=== PATIENT | female | born 1955 | race American Indian/Alaskan Native ===

== ENCOUNTER 2017-03-05 20:53 | Emergency (ER) | payer MEDICAID, OTHER ==
[2017-03-05 21:32] VITALS: BP 185/80
[2017-03-05 22:41] LABS: CHLORIDE,CL 106 mmol/L (101-111); SODIUM,NA 144 mmol/L (135-145)
[2017-03-05] MEDS ORDERED: Diltiazem IR 30 MG Tab PO ONE (23:19)
--- NOTE | 2017-03-05 23:24 | EDM.PDOC ---
ED HPI GENERAL MEDICAL PROBLEM - General Chief Complaint: General Stated Complaint: BODY FEELS, TINGLY, [id number] Time Seen by Provider: 03/05/17 23:20 Source of Information: Reports: Patient History Limitations: Reports: No Limitations - History of Present Illness INITIAL COMMENTS - FREE TEXT/NARRATIVE: c/o having rapid heart for few months been [facility] few months [facility] was told need cardio referral but nothing happened then while at her 6 month check up last tuesday pt repeated her concern and has referral pending next week. tonight problem still not gone and has pressure in head so came here - Related Data Allergies Allergy/AdvReac Type Severity Reaction Status Date / Time aspirin Allergy Acid Reflux Verified 03/05/17 21:33 codeine Allergy Stomach Verified 03/05/17 21:33 Upset doxycycline Allergy Nausea Verified 03/05/17 21:33 metronidazole [From Flagyl] Allergy Nausea Verified 03/05/17 21:33 sulfamethoxazole Allergy Nausea Verified 03/05/17 21:33 [From Bactrim] trimethoprim [From Bactrim] Allergy Nausea Verified 03/05/17 21:33 Home Meds: Home Meds Albuterol Sulfate [Albuterol Sulfate HFA] 2 inhalation IH ASDIRECTED PRN [History] Atenolol [Tenormin] 100 mg PO DAILY 02/13/14 [History] Pantoprazole [Protonix] 40 mg PO BID 02/13/14 [History] atorvaSTATin [Lipitor] 20 mg PO BEDTIME 02/13/14 [History] amLODIPine Besylate [Amlodipine Besylate] 5 mg PO DAILY 10/04/14 [History] Ibuprofen 600 mg PO Q6H PRN 04/19/16 [History] Loratadine 1 tab PO DAILY PRN 04/19/16 [History] Cholecalciferol (Vitamin D3) [Vitamin D3] 1 tab PO DAILY 03/05/17 [History] Past Medical History HEENT History: Reports: Hard of Hearing, Impaired Vision Other HEENT History: wearing corrective lenses Cardiovascular History: Reports: High Cholesterol, Hypertension Respiratory History: Reports: Asthma, Bronchitis, Recurrent, Pneumonia, Recurrent Gastrointestinal History: Reports: Cholelithiasis, GERD Genitourinary History: Reports: UTI, Recurrent, Other (See Below) Other Genitourinary History: Kidney stones [employer] History: Reports: Musculoskeletal History: Reports: Arthritis, Back Pain, Chronic Neurological History: Reports: None Psychiatric History: Reports: None Endocrine/Metabolic History: Reports: None Hematologic History: Reports: None Immunologic History: Reports: None Oncologic (Cancer) History: Reports: None Dermatologic History: Reports: Psoriasis - Infectious Disease History Infectious Disease History: Reports: Chicken Pox, Mumps - Past Surgical History GI Surgical History: Reports: Appendectomy, Cholecystectomy, EGD, Esophageal Dilatation Social & Family History - Family History Family Medical History: Noncontributory HEENT: Reports: Hearing Impairment Cardiac: Reports: CAD, Hypertension, Pacemaker Other Cardiac Family History: Mother Respiratory: Reports: None GI: Reports: None : Reports: Renal Disease/Insufficiency OBGYN: Reports: None Musculoskeletal: Reports: None Neurological: Reports: None Psychiatric: Reports: None Endocrine/Metabolic: Reports: None, Diabetes, type II Hematologic: Reports: None Immunologic: Reports: None Dermatologic: Reports: None Oncologic: Reports: Prostate, Other (See Below) Other Oncologic Family History: vaginal ca - Tobacco Use Smoking Status *Q: Former Smoker Years of Tobacco use: 15 Packs/Tins Daily: 1 Used Tobacco, but Quit: No Month Tobacco Last Used: april Second Hand Smoke Exposure: No - Caffeine Use Caffeine Use: Reports: Coffee, Soda - Alcohol Use Days Per Week of Alcohol Use: 0 - Recreational Drug Use Recreational Drug Use: No ED ROS GENERAL - Review of Systems Review Of Systems: ROS reveals no pertinent complaints other than HPI. ED EXAM, GENERAL - Physical Exam Exam: See Below Exam Limited By: No Limitations General Appearance: Alert, WD/WN, Anxious, Mild Distress, Other (distraught) Ears: Hearing Grossly Normal Throat/Mouth: Normal Voice, No Airway Compromise Head: Atraumatic Neck: Non-Tender, Full Range of Motion Respiratory/Chest: No Respiratory Distress Cardiovascular: Regular Rate, Rhythm GI/Abdominal: Soft, Non-Tender Neurological: Alert, Oriented, Normal Cognition, Normal Gait, No Motor/Sensory Deficits Psychiatric: Flat Affect Skin Exam: Warm, Dry, Normal Color Lymphatic: No Adenopathy Course - Vital Signs Last Recorded V/S: Last Vital Signs Temp 36.3 C 03/05/17 21:29 Pulse 75 03/05/17 21:29 Resp 16 03/05/17 21:29 BP 185/80 H 03/05/17 21:29 Pulse Ox 99 03/05/17 21:29 - Orders/Labs/Meds Orders: Active Orders 24 hr Category Date Time Status EKG 12 Lead [EKG Documentation Completion] [RC] STAT Care 03/05/17 23:18 Active Labs: Laboratory Tests 03/05/17 03/05/17 03/05/17 Range/Units 21:55 22:15 22:15 WBC 7.7 (5.0-10.0) 10^3/uL RBC 4.43 (4.2-5.4) 10^6/uL Hgb 12.9 (12.0-16.0) g/dL Hct 38.5 (37.0-47.0) % MCV 86.9 (80-100) fL MCH 29.1 (27.0-34.0) pg MCHC 33.5 (33.0-35.0) g/dL Plt Count 237 (150-450) 10^3/uL Neut % (Auto) 66.0 (42.2-75.2) % Lymph % (Auto) 24.5 (20.5-50.1) % [place] % (Auto) 7.1 (2-8) % Eos % (Auto) 1.9 (1.0-3.0) % Baso % (Auto) 0.5 (0.0-1.0) % Sodium 144 (135-145) mmol/L Potassium 3.7 (3.6-5.0) mmol/L Chloride 106 (101-111) mmol/L Carbon Dioxide 28.0 (21.0-31.0) mmol/L Anion Gap 13.7 BUN 14 (7-18) mg/dL Creatinine 1.0 (0.6-1.3) mg/dL Est Cr Clr Drug Dosing 47.63 mL/min Estimated GFR (MDRD) 56 BUN/Creatinine Ratio 14.00 Glucose 120 H (74-105) mg/dL Calcium 9.4 (8.4-10.2) mg/dl Total Bilirubin 0.7 (0.2-1.0) mg/dL AST 20 (10-42) IU/L ALT 19 (10-60) IU/L Alkaline Phosphatase 64 (42-121) IU/L Troponin I < 0.02 (0.00-0.02) ng/ml Total Protein 6.9 (6.7-8.2) g/dl Albumin 4.2 (3.2-5.5) g/dl Globulin 2.7 Albumin/Globulin Ratio 1.56 Urine Color Straw (YELLOW) Urine Appearance Clear (CLEAR) Urine pH 7.0 (5.0-9.0) Ur Specific [place] 1.010 (1.005-1.030) Urine Protein Negative (NEGATIVE) Urine Glucose (UA) Negative (NEGATIVE) Urine Ketones Negative (NEGATIVE) Urine Occult Blood Trace-lysed H (NEGATIVE) Urine Nitrite Negative (NEGATIVE) Urine Bilirubin Negative (NEGATIVE) Urine Urobilinogen 0.2 (0.2-1.0) mg/dL Ur Leukocyte Esterase Trace H (NEGATIVE) Urine RBC 0-5 /HPF Urine WBC 0-5 (0-5/HPF) /HPF Ur Epithelial Cells Occasional /HPF Urine Bacteria Occasional (0-FEW/HPF) /HPF Meds: Medications Discontinued Medications Generic Name Dose Route Start Last Admin Trade Name Freq PRN Reason Stop Dose Admin Diltiazem HCl 30 mg 03/05/17 23:19 03/05/17 23:25 Cardizem PO 03/05/17 23:20 30 mg ONETIME ONE Administration - Re-Assessments/Exams Free Text/Narrative Re-Assessment/Exam: 03/06/17 00:01 results discussed with pt who is feeling better post cardizem with BP going down Departure - Departure Time of Disposition: 00:02 Disposition: Home, Self-Care 01 Condition: Good Clinical Impression: Heart palpitations - Discharge Information Instructions: Palpitations Forms: ED Department Discharge Additional Instructions: 1) rest and avoid bending lifting straining 2) see clinic Tuesday for STRESS TEST, ECHOCARDIOGRAM, HOLTER MONITOR 3) recheck if there is any change or concern - My Orders Last 24 Hours: My Active Orders 03/05/17 23:18 EKG 12 Lead [EKG Documentation Completion] [RC] STAT - Assessment/Plan Last 24 Hours: My Active Orders 03/05/17 23:18 EKG 12 Lead [EKG Documentation Completion] [RC] STAT
--- NOTE | 2017-03-22 11:02 | EKG ---
03/05/2017- JHONNY GRANGER - This is a standard 12-lead EKG showing normal sinus rhythm with a ventricular rate of 60 beats per minute. Normal FL interval and QRS duration. Normal axis. No significant ST-T changes. [facility] /[id number]
== END 2017-03-06 00:18 | disposition home or self-care (01) ==
LOC: DL.ED 20:53
DX: R00.2 Palpitations (principal); E78.00 Pure hypercholesterolemia, unspecified; I10 Essential (primary) hypertension; K21.9 Gastro-esophageal reflux disease without esophagitis; J45.909 Unspecified asthma, uncomplicated; M19.90 Unspecified osteoarthritis, unspecified site; Z88.6 Allergy status to analgesic agent; Z88.5 Allergy status to narcotic agent; Z88.1 Allergy status to other antibiotic agents; Z88.2 Allergy status to sulfonamides; Z79.899 Other long term (current) drug therapy; Z87.01 Personal history of pneumonia (recurrent); Z87.440 Personal history of urinary (tract) infections; Z90.49 Acquired absence of other specified parts of digestive tract; Z87.891 Personal history of nicotine dependence
CPT/HCPCS: 36415; 80053; 81001; 84484; 85025; 93005; 99285; A9270

== ENCOUNTER 2017-05-10 05:43 | Day surgery (SDC) | payer OTHER ==
[2017-05-10] MEDS ORDERED: fentaNYL 100 MCG/2 ML SDV IV ONE ×2 (05:44→07:08)
[2017-05-10] MEDS ORDERED: Midazolam 1 MG/ML 2 ML SDV IV ONE ×6 (05:44→07:14)
[2017-05-10] MEDS ORDERED: Midazolam 1 MG/ML 2 ML SDV ONE (06:11)
[2017-05-10] MEDS ORDERED: Dextrose 5%-0.45% NaCl 1,000 ML IV SCH (06:30)
[2017-05-10] MEDS ORDERED: Sodium Chloride 0.9% 10 ML Syringe FLUSH PRN (06:30)
[2017-05-10 09:57] VITALS: BP 128/66
--- NOTE | 2017-05-10 12:07 | OR ---
DATE: 05/10/2017 PROCEDURE: Total colonoscopy. INSTRUMENT USED: CF-H180 AL Olympus video colonoscope. PREMEDICATIONS: Fentanyl 100 mcg intravenous, Versed 4 mg intravenous. Nasal O2 cannula. The procedure was done under pulse oximetry, BP recording, and manager cardiac. INDICATION: Screening colonoscopic examination is done for detection of any polypoid lesions and removal, endoscopic hemostasis therapy if needed. DESCRIPTION OF PROCEDURE: Initial rectal exam showed external hemorrhoidal tags. Rigid anoscopy was normal. The colonoscope was passed with ease. Few scattered diverticula were noted in the distal left colon along with some deformity. The scope was passed with ease up to the ileocecal area, photographs were taken of the normal-appearing cecum, identified by landmarks of appendiceal orifice and double-bulged ileocecal folds. No bleeding was noted from any of the visualized areas at the commencement of the examination. No stricture. No vascular ectasia. No large isolated ulcerations seen. No evidence of diffuse inflammatory bowel disease in the form of friability, contact bleeding, or ulcerations. No polyp or tumor mass identified. Probing the proximal sides of folds and flexures, using adequate distention and clearing of the stool material, withdrawal of the scope was made. Cecum to rectum time was 6 minutes. No bleeding was noted from any of the visualized areas at the completion of examination. IMPRESSION: 1. External hemorrhoids. 2. Diverticulosis. The patient tolerated the procedure well. [facility] /[id number]
--- NOTE | 2017-05-10 12:19 | LETTER ---
05/10/2017 Quyen Hamilton NP [facility] [address] [place] [address] RE: JHONNY GRANGER : 1955 Dear Ms. Hamilton: Ms. Jhonny Cantorgailnatalia had colonoscopic examination done this morning and she tolerated the procedure well. I herewith send a copy of endoscopy note and photographs for your review. Thank you. Sincerely, [facility] /[id number]
== END 2017-05-10 09:26 | disposition home or self-care (01) ==
LOC: DL.ENDO 05:43
PROVIDERS: ATTEND Internal Medicine Gastroenterology
DX: Z12.11 Encounter for screening for malignant neoplasm of colon (principal); K57.30 Diverticulosis of large intestine without perforation or abscess without bleeding; K64.4 Residual hemorrhoidal skin tags; E66.09 Other obesity due to excess calories; I10 Essential (primary) hypertension; E78.5 Hyperlipidemia, unspecified; K21.9 Gastro-esophageal reflux disease without esophagitis
CPT/HCPCS: 45378; J2250; J3010; J7042

== ENCOUNTER 2021-07-08 17:12 | Emergency (ER) | payer BC, OTHER, MEDICARE ==
[2021-07-08 17:48] VITALS: BP 151/75; PULSE 90
[2021-07-08 17:59] LABS: ANION GAP 14.5 mEq/L (7-13); CHLORIDE,CL 100 mmol/L (98-107); SODIUM,NA 139 mmol/L (136-145)
[2021-07-08 18:16] LABS: CORONAVIRUS COVID-19 NAA NEGATIVE (NEGATIVE)
--- NOTE | 2021-07-08 18:26 | EDM.PDOC ---
ED HPI GENERAL MEDICAL PROBLEM - General Chief Complaint: Chest Pain Stated Complaint: PAIN IN CHEST Time Seen by Provider: 07/08/21 18:15 Source of Information: Reports: Patient History Limitations: Reports: No Limitations - History of Present Illness INITIAL COMMENTS - FREE TEXT/NARRATIVE: This 66 yo female patient reports to the ED today due to increased chest wall tightness. The patient also reports she had diarrhea this morning and has not been eating or drinking normally today. The patient reports she had an episode of lightheadedness this afternoon. The patient reports she does not have any symptoms at this time. Onset: Today Duration: Resolved Prior to Arrival Location: Reports: Generalized Quality: Reports: Other Severity: Mild Improves with: Reports: None Worsens with: Reports: None Context: Reports: Other Associated Symptoms: Reports: No Other Symptoms Bilateral Breast Pain Score (Numeric/FACES): 7 - Related Data Allergies Allergy/AdvReac Type Severity Reaction Status Date / Time aspirin Allergy Acid Reflux Verified 07/08/21 17:49 codeine Allergy Stomach Verified 07/08/21 17:49 Upset doxycycline Allergy Nausea Verified 07/08/21 17:49 metronidazole [From Flagyl] Allergy Nausea Verified 07/08/21 17:49 sulfamethoxazole Allergy Nausea Verified 07/08/21 17:49 [From Bactrim] trimethoprim [From Bactrim] Allergy Nausea Verified 07/08/21 17:49 Home Meds: Home Meds Albuterol Sulfate [Albuterol Sulfate HFA] 2 puff IH ASDIRECTED PRN 02/13/14 [History] Atenolol [Tenormin] 100 mg PO DAILY 02/13/14 [History] Pantoprazole [Protonix] 40 mg PO BID 02/13/14 [History] atorvaSTATin [Lipitor] 20 mg PO BEDTIME 02/13/14 [History] amLODIPine Besylate [Amlodipine Besylate] 10 mg PO DAILY 10/04/14 [History] Ibuprofen 600 mg PO Q6H PRN 04/19/16 [History] Loratadine 1 tab PO DAILY PRN 04/19/16 [History] Cholecalciferol (Vitamin D3) [Vitamin D3] 1 tab PO DAILY 03/05/17 [History] Meloxicam 15 mg PO DAILY PRN 03/22/17 [History] Triamcinolone Acetonide 1 spray NASBOTH BID PRN 03/22/17 [History] Past Medical History HEENT History: Reports: Hard of Hearing, Impaired Vision Other HEENT History: wearing corrective lenses Cardiovascular History: Reports: High Cholesterol, Hypertension, Other (See Below) Other Cardiovascular History: PT STATES SHE HAS PALPITATIONS OCCASIONALLY Respiratory History: Reports: Asthma, Bronchitis, Recurrent, Pneumonia, Recurrent Gastrointestinal History: Reports: Cholelithiasis, GERD Genitourinary History: Reports: Renal Calculus, UTI, Recurrent, Other (See Below) Other Genitourinary History: Kidney stones [employer] History: Reports: Musculoskeletal History: Reports: Arthritis, Back Pain, Chronic Neurological History: Reports: None Psychiatric History: Reports: None Endocrine/Metabolic History: Reports: None Hematologic History: Reports: None Immunologic History: Reports: None Oncologic (Cancer) History: Reports: None Dermatologic History: Reports: Psoriasis - Infectious Disease History Infectious Disease History: Reports: Chicken Pox, Mumps - Past Surgical History Head Surgeries/Procedures: Reports: None HEENT Surgical History: Reports: None Cardiovascular Surgical History: Reports: None Respiratory Surgical History: Reports: None GI Surgical History: Reports: Appendectomy, Cholecystectomy, EGD, Esophageal Dilatation Musculoskeletal Surgical History: Reports: None Social & Family History - Family History Family Medical History: No Pertinent Family History HEENT: Reports: Hearing Impairment Cardiac: Reports: CAD, Hypertension, Pacemaker Other Cardiac Family History: Mother Respiratory: Reports: None GI: Reports: None : Reports: Renal Disease/Insufficiency OBGYN: Reports: None Musculoskeletal: Reports: None Neurological: Reports: None Psychiatric: Reports: None Endocrine/Metabolic: Reports: None, Diabetes, type II Hematologic: Reports: None Immunologic: Reports: None Dermatologic: Reports: None Oncologic: Reports: Prostate, Other (See Below) Other Oncologic Family History: vaginal ca - Tobacco Use Tobacco Use Status *Q: Never Tobacco User Second Hand Smoke Exposure: No - Caffeine Use Caffeine Use: Reports: Coffee Caffeine Use Comment: 8 oz - Recreational Drug Use Recreational Drug Use: No ED ROS GENERAL - Review of Systems Review Of Systems: Comprehensive ROS is negative, except as noted in HPI. ED EXAM, GENERAL - Physical Exam Exam: See Below Exam Limited By: No Limitations General Appearance: Alert, WD/WN, No Apparent Distress Eye Exam: Bilateral Eye: EOMI, Normal Inspection, PERRL Ears: Normal External Exam, Normal Canal, Hearing Grossly Normal, Normal TMs Nose: Normal Inspection, Normal Mucosa, No Blood Throat/Mouth: Normal Inspection, Normal Lips, Normal Teeth, Normal Gums, Normal Oropharynx, Normal Voice, No Airway Compromise Head: Atraumatic, Normocephalic Neck: Normal Inspection, Supple, Non-Tender, Full Range of Motion Respiratory/Chest: No Respiratory Distress, Lungs Clear, Normal Breath Sounds, No Accessory Muscle Use, Chest Non-Tender Cardiovascular: Normal Peripheral Pulses, Regular Rate, Rhythm, No Edema, No Gallop, No JVD, No Murmur, No Rub GI/Abdominal: Normal Bowel Sounds, Soft, Non-Tender, No Organomegaly, No Dis tention, No Abnormal Bruit, No Mass (Female) Exam: Deferred Rectal (Female) Exam: Deferred Back Exam: Normal Inspection, Full Range of Motion, NT Extremities: Normal Inspection, Normal Range of Motion, Non-Tender, Normal Capillary Refill, No Pedal Edema Neurological: Alert, Oriented, CN II-XII Intact, Normal Cognition, Normal Gait, Normal Reflexes, No Motor/Sensory Deficits Psychiatric: Normal Affect, Normal Mood Skin Exam: Warm, Dry, Intact, Normal Color, No Rash Lymphatic: No Adenopathy #1 Interpretation EKG Date: 07/08/21 Time: 18:33 Rhythm: NSR Rate (Beats/Min): 77 Kim: Normal P-Wave: Present QRS: Normal ST-T: Normal QT: Normal Comparison: No Change Course - Vital Signs Last Recorded V/S: Last Vital Signs Temp 97.0 F 07/08/21 17:38 Pulse 90 07/08/21 17:38 Resp 16 07/08/21 17:38 BP 151/75 H 07/08/21 17:38 Pulse Ox 98 07/08/21 17:38 - Orders/Labs/Meds Orders: Active Orders 24 hr Category Date Time Status CULTURE BLOOD [BC] Stat Lab 07/08/21 17:25 Received Labs: Laboratory Tests 07/08/21 07/08/21 07/08/21 Range/Units 17:23 17:25 17:25 WBC 10.6 H (5.0-10.0) 10^3/uL RBC 4.64 (4.2-5.4) 10^6/uL Hgb 13.7 (12.0-16.0) g/dL Hct 40.4 (37.0-47.0) % MCV 87.1 (80-100) fL MCH 29.5 (27.0-34.0) pg MCHC 33.9 (33.0-35.0) g/dL Plt Count 238 (150-450) 10^3/uL Neut % (Auto) 88.1 H (42.2-75.2) % Lymph % (Auto) 4.1 L (20.5-50.1) % [place] % (Auto) 7.0 (2-8) % Eos % (Auto) 0.6 L (1.0-3.0) % Baso % (Auto) 0.2 (0.0-1.0) % D-Dimer, Quantitative < 100 (0-400) ng/mL Sodium (136-145) mmol/L Potassium (3.5-5.1) mmol/L Chloride (98-107) mmol/L Carbon Dioxide (21-32) mmol/L Anion Gap (7-13) mEq/L BUN (7-18) mg/dL Creatinine (0.55-1.02) mg/dL Est Cr Clr Drug Dosing mL/min Estimated GFR (MDRD) BUN/Creatinine Ratio (No establ ref range) Glucose (70-99) mg/dL Lactic Acid (0.4-2.0) mmol/L Calcium (8.5-10.1) mg/dL Total Bilirubin (0.2-1.0) mg/dL AST (15-37) U/L ALT (14-59) U/L Alkaline Phosphatase (46-116) U/L Troponin I High Sens (<=51) pg/mL Total Protein (6.4-8.2) g/dL Albumin (3.4-5.0) g/dL Globulin Albumin/Globulin Ratio Urine Color (YELLOW) Urine Appearance (CLEAR) Urine pH (5.0-9.0) Ur Specific [place] (1.005-1.030) Urine Protein (NEGATIVE) Urine Glucose (UA) (NEGATIVE) Urine Ketones (NEGATIVE) Urine Occult Blood (NEGATIVE) Urine Nitrite (NEGATIVE) Urine Bilirubin (NEGATIVE) Urine Urobilinogen (0.2-1.0) mg/dL Ur Leukocyte Esterase (NEGATIVE) Urine RBC (0-5) /HPF Urine WBC (0-5/HPF) /HPF Ur Epithelial Cells (NOT SEEN) /HPF Amorphous Sediment (NOT SEEN) /HPF Urine Bacteria (0-FEW/HPF) /HPF Urine Mucus (NOT SEEN) /LPF Influenza Type A RNA Negative (NEGATIVE) Influenza Type B RNA Negative (NEGATIVE) SARS-CoV-2 RNA (BETH) Negative (NEGATIVE) 07/08/21 07/08/21 07/08/21 Range/Units 17:25 17:25 18:08 WBC (5.0-10.0) 10^3/uL RBC (4.2-5.4) 10^6/uL Hgb (12.0-16.0) g/dL Hct (37.0-47.0) % MCV (80-100) fL MCH (27.0-34.0) pg MCHC (33.0-35.0) g/dL Plt Count (150-450) 10^3/uL Neut % (Auto) (42.2-75.2) % Lymph % (Auto) (20.5-50.1) % [place] % (Auto) (2-8) % Eos % (Auto) (1.0-3.0) % Baso % (Auto) (0.0-1.0) % D-Dimer, Quantitative (0-400) ng/mL Sodium 139 (136-145) mmol/L Potassium 3.5 (3.5-5.1) mmol/L Chloride 100 (98-107) mmol/L Carbon Dioxide 28 (21-32) mmol/L Anion Gap 14.5 H (7-13) mEq/L BUN 16 (7-18) mg/dL Creatinine 0.90 (0.55-1.02) mg/dL Est Cr Clr Drug Dosing 50.18 mL/min Estimated GFR (MDRD) > 60 BUN/Creatinine Ratio 17.8 (No establ ref range) Glucose 124 H (70-99) mg/dL Lactic Acid 0.9 (0.4-2.0) mmol/L Calcium 8.8 (8.5-10.1) mg/dL Total Bilirubin 1.4 H (0.2-1.0) mg/dL AST 94 H (15-37) U/L ALT 84 H (14-59) U/L Alkaline Phosphatase 102 (46-116) U/L Troponin I High Sens 6 (<=51) pg/mL Total Protein 6.9 (6.4-8.2) g/dL Albumin 4.0 (3.4-5.0) g/dL Globulin 2.9 Albumin/Globulin Ratio 1.4 Urine Color Yellow (YELLOW) Urine Appearance Slightly cloudy (CLEAR) Urine pH 5.5 (5.0-9.0) Ur Specific [place] 1.020 (1.005-1.030) Urine Protein Negative (NEGATIVE) Urine Glucose (UA) Negative (NEGATIVE) Urine Ketones Negative (NEGATIVE) Urine Occult Blood Trace-intact H (NEGATIVE) Urine Nitrite Negative (NEGATIVE) Urine Bilirubin Negative (NEGATIVE) Urine Urobilinogen 0.2 (0.2-1.0) mg/dL Ur Leukocyte Esterase Negative (NEGATIVE) Urine RBC 0-5 (0-5) /HPF Urine WBC 0-5 (0-5/HPF) /HPF Ur Epithelial Cells Few (NOT SEEN) /HPF Amorphous Sediment Few (NOT SEEN) /HPF Urine Bacteria Few (0-FEW/HPF) /HPF Urine Mucus Few H (NOT SEEN) /LPF Influenza Type A RNA (NEGATIVE) Influenza Type B RNA (NEGATIVE) SARS-CoV-2 RNA (BETH) (NEGATIVE) Departure - Departure Time of Disposition: 19:00 Disposition: Home, Self-Care 01 Condition: Fair Clinical Impression: Gastroenteritis - Discharge Information *PRESCRIPTION DRUG MONITORING PROGRAM REVIEWED*: Not Applicable *COPY OF PRESCRIPTION DRUG MONITORING REPORT IN PATIENT SUSAN: Not Applicable Instructions: Food Choices to Help Relieve Diarrhea, Adult Forms: ED Department Discharge Care Plan Goals: The patient was advised of the examination, lab and EKG results during the visit. The patient was encouraged to stick to a BRAT diet (bananas, rice, applesauce and toast) with small sips of fluids over the next 24 hours. If the patient has any additional symptoms or concerns, the patient should either return to the emergency department or visit her primary care facility. Sepsis Event Note (ED) - Evaluation Sepsis Screening Result: No Definite Risk - Focused Exam Vital Signs: Vital Signs Temp Pulse Resp BP Pulse Ox 07/08/21 17:38 97.0 F 90 16 151/75 H 98 - My Orders Last 24 Hours: My Active Orders 07/08/21 17:25 CULTURE BLOOD [BC] Stat - Assessment/Plan Last 24 Hours: My Active Orders 07/08/21 17:25 CULTURE BLOOD [BC] Stat
== END 2021-07-08 19:08 | disposition home or self-care (01) ==
LOC: DL.ED 17:12
DX: K52.9 Noninfective gastroenteritis and colitis, unspecified (principal); E78.00 Pure hypercholesterolemia, unspecified; I10 Essential (primary) hypertension; K21.9 Gastro-esophageal reflux disease without esophagitis; Z88.5 Allergy status to narcotic agent; Z88.1 Allergy status to other antibiotic agents; Z88.8 Allergy status to other drugs, medicaments and biological substances; Z79.899 Other long term (current) drug therapy; Z20.822 Contact with and (suspected) exposure to COVID-19
CPT/HCPCS: 0240U; 36415; 80053; 81001; 83605; 84484; 85025; 85379; 87040; 93005; 93010; 99284; 99285-25

== ENCOUNTER 2021-09-01 07:38 | Emergency (ER) | payer BC, OTHER ==
[2021-09-01 07:55] VITALS: BP 150/101; PULSE 92
[2021-09-01] MEDS ORDERED: Metoprolol Tartrate 5 MG/5 ML SDV IVPUSH ONE (08:09)
[2021-09-01 08:31] LABS: ANION GAP 12.5 mEq/L (7-13)
== END 2021-09-01 10:12 | disposition home or self-care (01) ==
LOC: DL.ED 07:38
DX: I48.0 Paroxysmal atrial fibrillation (principal); I11.9 Hypertensive heart disease without heart failure; E78.00 Pure hypercholesterolemia, unspecified; K21.9 Gastro-esophageal reflux disease without esophagitis; Z88.1 Allergy status to other antibiotic agents; Z79.899 Other long term (current) drug therapy
CPT/HCPCS: 36415; 80053; 84443; 84484; 85025; 85379; 85610; 93005; 99283-25

== ENCOUNTER 2021-09-13 01:06 | Inpatient (IN) | payer BC, MEDICARE, OTHER ==
[2021-09-13] MEDS ORDERED: Diltiazem 25 MG/5 ML SDV IVPUSH ONE ×2 (01:27→03:06)
[2021-09-13 01:52] LABS: ANION GAP 12.5 mEq/L (7-13); CHLORIDE,CL 105 mmol/L (98-107); SODIUM,NA 144 mmol/L (136-145)
[2021-09-13] MEDS ORDERED: Sodium Chloride 0.9% 1,000 ML IV ONE (02:49)
[2021-09-13] MEDS: Sodium Chloride 0.9% 10 ML Syringe FLUSH PRN ×2 (02:55→20:17)
[2021-09-13] MEDS ORDERED: Diltiazem 125 MG in Sodium Chloride 0.9% 100 ML IV SCH (04:00)
[2021-09-13] MEDS ORDERED: Heparin Sodium 5,000 Units/ML Vial IVPUSH ONE (04:00)
[2021-09-13] MEDS: Heparin Sodium/0.45% NaCl 25,000 UNITS/500 ML BAG IV SCH (04:10)
[2021-09-13] MEDS ORDERED: Albuterol/Ipratropium 3.0-0.5 MG/3 ML Neb Soln NEB PRN (06:13)
[2021-09-13] MEDS ORDERED: Polyethylene Glycol 3350 Powder 17 GM Packet PO PRN (06:13)
[2021-09-13] MEDS ORDERED: Acetaminophen 325 MG Tab PO PRN (06:13)
[2021-09-13] MEDS ORDERED: HYDROmorphone 0.5 MG/0.5 ML Syringe IVPUSH PRN (06:13)
[2021-09-13] MEDS ORDERED: Acetaminophen/HYDROcodone 325-10 MG Tab PO PRN (06:13)
[2021-09-13] MEDS ORDERED: Ondansetron 4 MG/2 ML SDV IVPUSH PRN (06:13)
[2021-09-13] MEDS ORDERED: Metoprolol Tartrate 25 MG Tab PO ONE (06:16)
[2021-09-13] MEDS ORDERED: Metoprolol Succinate 50 MG Tab.ER PO ONE (06:48)
[2021-09-13] MEDS: Pantoprazole 40 MG Tab.CR PO SCH ×2 (08:36→20:09)
[2021-09-13] MEDS: amLODIPine 5 MG Tab PO SCH (08:36)
[2021-09-13] MEDS: Cholecalciferol (Vitamin D3) 25 MCG Tab PO SCH (08:36)
[2021-09-13] MEDS: atorvaSTATin 20 MG Tab PO SCH (20:09)
[2021-09-13] MEDS ORDERED: Metoprolol Tartrate 25 MG Tab PO SCH (21:00)
[2021-09-14] MEDS: Heparin Sodium/0.45% NaCl 25,000 UNITS/500 ML BAG IV SCH (03:59)
[2021-09-14 06:08] LABS: ANION GAP 14.4 mEq/L (7-13)
[2021-09-14] MEDS ORDERED: Potassium Chloride 10 MEQ Tab.ER PO ONE (08:30)
[2021-09-14] MEDS: Cholecalciferol (Vitamin D3) 25 MCG Tab PO SCH (08:57)
[2021-09-14] MEDS: Pantoprazole 40 MG Tab.CR PO SCH ×2 (08:57→20:42)
[2021-09-14] MEDS: Metoprolol Succinate 50 MG Tab.ER PO SCH ×2 (08:58→14:45)
[2021-09-14] MEDS: amLODIPine 5 MG Tab PO SCH (08:59)
[2021-09-14] MEDS: Sodium Chloride 0.9% 10 ML Syringe FLUSH PRN (09:11)
[2021-09-14] MEDS: atorvaSTATin 20 MG Tab PO SCH (20:42)
[2021-09-14] MEDS ORDERED: Zolpidem 5 MG Tab PO PRN (21:00)
[2021-09-15] MEDS: Heparin Sodium/0.45% NaCl 25,000 UNITS/500 ML BAG IV SCH (06:05)
[2021-09-15 06:19] LABS: ANION GAP 12.6 mEq/L (7-13); CHLORIDE,CL 105 mmol/L (98-107); SODIUM,NA 144 mmol/L (136-145)
[2021-09-15 08:26] VITALS: BP 148/76; PULSE 76
[2021-09-15] MEDS ORDERED: Metoprolol Succinate 50 MG Tab.ER PO SCH (09:00)
[2021-09-15] MEDS: Pantoprazole 40 MG Tab.CR PO SCH (09:13)
[2021-09-15] MEDS: amLODIPine 5 MG Tab PO SCH (09:14)
[2021-09-15] MEDS: Cholecalciferol (Vitamin D3) 25 MCG Tab PO SCH (09:15)
[2021-09-15] MEDS: Sodium Chloride 0.9% 10 ML Syringe FLUSH PRN (09:15)
== END 2021-09-15 09:58 | disposition home or self-care (01) | DRG 201 ==
LOC: DL.ED 01:06 → DL.MS 05:11
PROVIDERS: ADMIT Internal Medicine; ATTEND Internal Medicine
DX: I47.1 Supraventricular tachycardia (principal); R73.9 Hyperglycemia, unspecified; H54.7 Unspecified visual loss; H91.90 Unspecified hearing loss, unspecified ear; I10 Essential (primary) hypertension; E78.5 Hyperlipidemia, unspecified; I48.0 Paroxysmal atrial fibrillation; J45.909 Unspecified asthma, uncomplicated; K21.9 Gastro-esophageal reflux disease without esophagitis; G89.29 Other chronic pain; M54.9 Dorsalgia, unspecified; M19.90 Unspecified osteoarthritis, unspecified site; E66.9 Obesity, unspecified; E87.6 Hypokalemia; Z20.822 Contact with and (suspected) exposure to COVID-19; Z88.5 Allergy status to narcotic agent; Z79.01 Long term (current) use of anticoagulants; Z87.440 Personal history of urinary (tract) infections; Z87.01 Personal history of pneumonia (recurrent); Z68.35 Body mass index [BMI] 35.0-35.9, adult; Z79.899 Other long term (current) drug therapy; Z88.8 Allergy status to other drugs, medicaments and biological substances; Z88.6 Allergy status to analgesic agent; Z88.2 Allergy status to sulfonamides; Z88.1 Allergy status to other antibiotic agents; Z90.49 Acquired absence of other specified parts of digestive tract; Z87.891 Personal history of nicotine dependence
CPT/HCPCS: 36415; 80048; 80053; 81001; 83735; 84100; 84439; 84443; 84484; 85025; 85610; 85730; 86140; 96365; 96375; 96376; 99285-25; A9270-GY; J1644; J3490; J7030; U0002

== ENCOUNTER 2022-02-22 21:43 | Emergency (ER) | payer BC, MEDICARE, OTHER ==
[2022-02-22 22:03] VITALS: BP 168/74; PULSE 73
[2022-02-22 22:49] LABS: PTT,PARTIAL THROMBOPLSTIN TIME 24.4 SEC (22.0-34.0)
[2022-02-22 22:53] LABS: ANION GAP 8.7 mEq/L (7-13); CHLORIDE,CL 104 mmol/L (98-107); SODIUM,NA 140 mmol/L (136-145)
[2022-02-22 22:54] LABS: ESTIMATED GFR 58 mL/min (>=60)
== END 2022-02-22 23:24 | disposition home or self-care (01) ==
LOC: DL.ED 21:43
DX: I48.91 Unspecified atrial fibrillation (principal); R94.6 Abnormal results of thyroid function studies; I10 Essential (primary) hypertension; Z88.5 Allergy status to narcotic agent; Z88.1 Allergy status to other antibiotic agents; Z79.899 Other long term (current) drug therapy; Z79.01 Long term (current) use of anticoagulants; Z20.822 Contact with and (suspected) exposure to COVID-19
CPT/HCPCS: 36415; 80053; 81001; 83735; 83880; 84443; 84484; 85025; 85610; 85730; 86140; 93005; 93010; 99284; 99285; U0002

== ENCOUNTER 2022-03-24 09:13 | Day surgery (SDC) | payer BC, OTHER ==
[~2022-03-24 09:13] MED LIST: Proparacaine 0.5% Ophth Soln 15 ML Bottle ONE
[2022-03-24] MEDS ORDERED: Sodium Chloride 0.9% 10 ML Syringe IV ONE (09:14)
[2022-03-24] MEDS ORDERED: Midazolam 1 MG/ML 2 ML SDV IV ONE (09:14)
[2022-03-24] MEDS ORDERED: Dexamethasone 4 MG/ML SDV IV ONE (09:14)
[2022-03-24] MEDS ORDERED: Ondansetron 4 MG/2 ML SDV IVPUSH PRN (09:15)
[2022-03-24] MEDS ORDERED: Cataract Ophth Solution EYELF ONE (09:15)
[2022-03-24] MEDS ORDERED: Moxifloxacin 0.5% Ophth Soln 3 ML Bottle EYELF ONE (09:15)
[2022-03-24] MEDS ORDERED: Povidone-Iodine 5% Sterile Ophth Soln 30 ML Bottle EYELF ONE ×2 (09:15→10:30)
[2022-03-24] MEDS ORDERED: Proparacaine 0.5% Ophth Soln 15 ML Bottle EYELF ONE (09:15)
[2022-03-24] MEDS ORDERED: Sodium Chloride 0.9% 10 ML Syringe FLUSH PRN (09:15)
[2022-03-24] MEDS ORDERED: Timolol Maleate 0.5% Ophth Soln 5 ML Bottle EYELF ONE (09:15)
[2022-03-24] MEDS ORDERED: Tropicamide 1% Ophth Soln 15 ML Bottle EYELF ONE (09:15)
[2022-03-24] MEDS ORDERED: Acetaminophen 325 MG Tab PO PRN (09:15)
[2022-03-24] MEDS ORDERED: Phenylephrine 10% Ophth Soln 5 ML Bot EYELF PRN (09:15)
[2022-03-24] MEDS ORDERED: Tetracaine HCl/PF 0.5% 4 ML Bottle EYELF ONE (10:29)
[2022-03-24] MEDS ORDERED: Apraclonidine 0.5% Ophth Soln 5 ML Bot EYELF ONE (10:31)
[2022-03-24] MEDS ORDERED: Diclofenac Sodium 0.1% Ophth Soln 5 ML Bottle EYELF ONE (10:31)
[2022-03-24] MEDS ORDERED: Tobramycin 0.3% Ophth Oint 3.5 GM Tube EYELF ONE (10:33)
[2022-03-24] MEDS ORDERED: Balanced Salt Solution Ophth Irrig 500 ML Bottle IOCULAR ONE (10:35)
[2022-03-24] MEDS ORDERED: Lidocaine 1% 30 ML SDV ONE (10:35)
[2022-03-24 11:58] VITALS: BP 126/64; PULSE 61
[2022-03-24] MEDS ORDERED: Vancomycin 500 MG SDV EYELF ONE (13:02)
[2022-03-24] MEDS ORDERED: Chondroitin Sulfate/Hyaluronate Sodium Ophth Inj 0.75 ML Syringe EYELF ONE (13:03)
== END 2022-03-24 11:46 | disposition home or self-care (01) ==
LOC: DL.SDS 09:13
PROVIDERS: ATTEND Ophthalmology
DX: H25.812 Combined forms of age-related cataract, left eye (principal); I10 Essential (primary) hypertension; E78.5 Hyperlipidemia, unspecified; J45.909 Unspecified asthma, uncomplicated; K21.9 Gastro-esophageal reflux disease without esophagitis; E66.9 Obesity, unspecified; I48.0 Paroxysmal atrial fibrillation; Z88.6 Allergy status to analgesic agent; Z88.2 Allergy status to sulfonamides; Z88.1 Allergy status to other antibiotic agents; Z79.899 Other long term (current) drug therapy; Z79.51 Long term (current) use of inhaled steroids
CPT/HCPCS: 00142; 66982; A9270; J1100; J2250; J3370; J3490; V2632

== ENCOUNTER → 2022-04-07 | Day surgery (SDC) | payer BC, OTHER ==
[~2022-04-07] MED LIST changes: +Acetaminophen 325 MG Tab PO PRN; +Acetaminophen/Codeine 300-30 MG Tab PO PRN; +Dexamethasone 4 MG/ML SDV IV ONE; +Midazolam 1 MG/ML 2 ML SDV IV ONE; +Ondansetron 4 MG/2 ML SDV IVPUSH PRN; +Sodium Chloride 0.9% 10 ML Syringe IV ONE
[2022-04-07] MEDS: Proparacaine 0.5% Ophth Soln 15 ML Bottle EYERT ONE (09:29)
[2022-04-07] MEDS: Povidone-Iodine 5% Sterile Ophth Soln 30 ML Bottle EYERT ONE ×2 (09:30→10:48)
[2022-04-07] MEDS: Moxifloxacin 0.5% Ophth Soln 3 ML Bottle EYERT ONE (09:30)
[2022-04-07] MEDS: Tropicamide 1% Ophth Soln 15 ML Bottle EYERT ONE (09:31)
[2022-04-07] MEDS: Timolol Maleate 0.5% Ophth Soln 5 ML Bottle EYERT ONE (09:32)
[2022-04-07] MEDS: Phenylephrine 10% Ophth Soln 5 ML Bot EYERT PRN (09:32)
[2022-04-07] MEDS: Cataract Ophth Solution EYERT ONE (09:33)
[2022-04-07] MEDS: Sodium Chloride 0.9% 10 ML Syringe FLUSH PRN (09:40)
[2022-04-07] MEDS: Tetracaine HCl/PF 0.5% 4 ML Bottle EYERT ONE (10:47)
[2022-04-07] MEDS: Apraclonidine 0.5% Ophth Soln 5 ML Bot EYERT ONE (10:48)
[2022-04-07] MEDS: Diclofenac Sodium 0.1% Ophth Soln 5 ML Bottle EYERT ONE (10:49)
[2022-04-07] MEDS: Tobramycin 0.3% Ophth Oint 3.5 GM Tube EYERT ONE (10:50)
[2022-04-07] MEDS: Lidocaine 1% 30 ML SDV ONE (10:51)
[2022-04-07] MEDS: Balanced Salt Solution Ophth Irrig 500 ML Bottle IOCULAR ONE (10:52)
[2022-04-07] MEDS: Chondroitin Sulfate/Hyaluronate Sodium Ophth Inj 0.75 ML Syringe EYERT ONE (10:52)
[2022-04-07] MEDS: Vancomycin 500 MG SDV EYERT ONE (10:52)
[2022-04-07 11:46] VITALS: BP 115/61; PULSE 57
== END | disposition home or self-care (01) ==
LOC: DL.SDS 09:09
PROVIDERS: ATTEND Ophthalmology
DX: H25.811 Combined forms of age-related cataract, right eye (principal); I10 Essential (primary) hypertension; N18.9 Chronic kidney disease, unspecified; I48.0 Paroxysmal atrial fibrillation; J45.909 Unspecified asthma, uncomplicated; M17.0 Bilateral primary osteoarthritis of knee; E78.5 Hyperlipidemia, unspecified; E66.9 Obesity, unspecified; K21.9 Gastro-esophageal reflux disease without esophagitis; Z88.6 Allergy status to analgesic agent; Z88.2 Allergy status to sulfonamides; Z88.4 Allergy status to anesthetic agent; Z88.1 Allergy status to other antibiotic agents; Z79.899 Other long term (current) drug therapy
CPT/HCPCS: 00142; 66982; A9270; J1100; J2250; J3370; J3490; V2632